=== PATIENT | female | born 1965 | race Caucasian/White ===

== ENCOUNTER 2019-01-23 10:48 | Emergency (ER) | payer SELFPAY ==
[~2019-01-23] VITALS: Ht 162.6 cm; Wt 72.6 kg
--- NOTE | 2019-01-23 11:20 | NUR ---
PT TAKEN IN WHEELCHAIR TO ER BED 09
[2019-01-23 11:28] VITALS: BP 147/84
--- NOTE | 2019-01-23 11:36 | NUR ---
PATIENT PRESENTS TO ED WITH dropped off by friend, helped out of car pt c/o left ankle/foot pain swelling tender s/p slipped in motel bathroom yesterday no open skin noted, +2 pedal pulse---elevated leg above heart level .DENIES N/V/D; SKIN IS PINK/WARM/DRY; AAOX4 LUNGS CLEAR BL; HR EVEN AND REGULAR; PT DENIES ANY FEVER, CP, SOB, OR COUGH AT THIS TIME; PATIENT STATES PAIN OF 10/10 AT THIS TIME; VSS; PATIENT POSITIONED FOR COMFORT; HOB ELEVATED; BEDRAILS UP X2; BED DOWN. ER MD MADE AWARE OF PT STATUS.
--- NOTE | 2019-01-23 11:51 | NUR ---
x-ray completed at bedside
[2019-01-23] MEDS ORDERED: KETOROLAC 60 MG/2 ML VIAL IM ONE (12:25)
[2019-01-23] MEDS ORDERED: MORPHINE SULFATE 4 MG/ML SYR IM ONE (12:25)
--- NOTE | 2019-01-23 12:53 | NUR ---
medicated as written will continue to observe for pain control--currently being measured for splint.
--- NOTE | 2019-01-23 13:24 | NUR ---
drug abuse social worker requested by pt---ss were informed
[2019-01-23 14:00] VITALS: BP 158/88
--- NOTE | 2019-01-23 14:00 | NUR ---
Patient discharged with v/s stable. Written and verbal after care instructions given and explained. Patient alert, oriented and verbalized understanding of instructions. Ambulatory with steady gait. All questions addressed prior to discharge. ID band removed. Patient advised to follow up with PMD. Rx of MOTRIN 600MG, TRAMADOL HYDROCHLORIDE 50MG given. Patient educated on indication of medication including possible reaction and side effects. Opportunity to ask questions provided and answered.
== END 2019-01-23 14:00 | disposition home or self-care (01) ==
LOC: MED 10:48 → EDBD 10:48 → MED 14:00
DX: S92.252A Displaced fracture of navicular [scaphoid] of left foot, initial encounter for closed fracture (principal); I10 Essential (primary) hypertension; M19.90 Unspecified osteoarthritis, unspecified site; F19.10 Other psychoactive substance abuse, uncomplicated; Z88.0 Allergy status to penicillin; S82.832A Other fracture of upper and lower end of left fibula, initial encounter for closed fracture; W18.2XXA Fall in (into) shower or empty bathtub, initial encounter; Y92.59 Other trade areas as the place of occurrence of the external cause; Y99.8 Other external cause status
CPT/HCPCS: 29515; 73590; 73630; 96372; 99283; J1885; J2270

== ENCOUNTER 2019-03-22 14:30 | Emergency (ER) | payer OTHER ==
[~2019-03-22] VITALS: Ht 154.9 cm; Wt 65.5 kg
[2019-03-22 14:55] VITALS: BP 135/69
--- NOTE | 2019-03-22 15:12 | NUR ---
Patient transferred to bed 8 via wheelchair by tech. RN evaluating patient at bedside.
--- NOTE | 2019-03-22 15:14 | NUR ---
BIB SELF C/O LEFT FOOT PAIN RADIATING TO LEFT LEG & LEFT HIP X 45 DAYS. LEFT FOOT SWOLLEN. + PEDAL PULSE LEFT FOOT. PT SEEN HERE 01/23/19 DX: FIBULAR FRACTURE. MED HX:LEFT HIP SURGERY, HYSTERECTOMY MED: NONE
[2019-03-22] MEDS ORDERED: MORPHINE SULFATE 4 MG/ML SYR IM ONE (15:55)
--- NOTE | 2019-03-22 17:40 | NUR ---
PT ASLEEP IN BED, PER PT, MORPHINE HELPED PROVIDE PAIN RELIEF.
[2019-03-22 18:05] VITALS: BP 130/70
--- NOTE | 2019-03-22 18:05 | NUR ---
Written and verbal after care instructions given and explained. Patient alert AND verbalized understanding of instructions. Ambulatory with steady gait. All questions addressed prior to discharge. ID band removed. Patient advised to follow up with PMD. Rx of NORCO AND IBUPROFEN given. Opportunity to ask questions provided and answered.
== END 2019-03-22 18:05 | disposition home or self-care (01) ==
LOC: MED 14:30
DX: S82.832D Other fracture of upper and lower end of left fibula, subsequent encounter for closed fracture with routine healing (principal); I10 Essential (primary) hypertension; F17.200 Nicotine dependence, unspecified, uncomplicated; Z88.0 Allergy status to penicillin; Z90.710 Acquired absence of both cervix and uterus; X58.XXXD Exposure to other specified factors, subsequent encounter
CPT/HCPCS: 96372; 99283; J2270